=== PATIENT | female | born 1980 | race Caucasian/White ===

== ENCOUNTER 2023-09-26 09:06 | Outpatient (CLI) | payer BC, SELFPAY ==
--- NOTE | 2023-09-26 09:15 | US_ITS ---
[facility] Facility:?[facility] Patient ID:?[id number] Site Patient ID:?[id number]. Site :?[id number] Study:?US-Pelvis TRANSABDOMINAL AND TRANSVAGINAL-09/26/2023 9:54:06 AM Ordering Physician:ENEDINA LIMON Final Report: INDICATION: Abnormal uterine and vaginal bleeding. COMPARISON: None available. FINDINGS: Transvaginal and transabdominal ultrasound examination of the female pelvis was performed. Initial examination is performed with transabdominal technique and transvaginal technique is used for better visualization of the pelvic structures. The uterus is anteverted with no evidence of mass. It measures 7.4 x 3.5 x 4.6 cm. The endometrial lining is thin and not measurable, best seen in the superior fundus where there is mild amount of nonspecific fluid. There is solid-appearing heterogeneously hyperechoic material without increased color Doppler flow in the inferior fundal uterine cavity, nonspecific. This measures 7 millimeters in diameter and 2.0 centimeters in length. This could be a blood clot. The ovaries are normal in appearance and size, the right measuring 2.9 x 2.0 x 2.1 cm and the left measuring 3.4 x 1.4 x 2.7 cm. There is normal color and pulse doppler flow in both ovaries. There is no sign of free fluid in the pelvis. IMPRESSION: 1. Lower fundal uterine cavity contains heterogeneously hyperechoic material measuring 7 millimeters in thickness, nonspecific, but possibly blood clot. 2. Small amounts of fluid in the nondistended superior uterine cavity showing a very thin endometrial lining. 3. No other abnormality seen in the uterus. 4. Ovaries are normal in appearance bilaterally. Dictated by Michael Yoder MD @ 09/26/2023 8:31:42 PM Signed by:?Michael Yoder MD @09/26/2023 8:31:42 PM (Electronic Signature)
== END 2023-09-26 09:07 | disposition home or self-care (01) ==
LOC: US 09:07
PROVIDERS: PCP Physician Assistant; Visit Provider Obstetrics & Gynecology
DX: N93.9 Abnormal uterine and vaginal bleeding, unspecified (principal); R93.89 Abnormal findings on diagnostic imaging of other specified body structures
CPT/HCPCS: 76830; 76856

== ENCOUNTER 2023-11-26 06:11 | Day surgery (SDC) | payer BC, SELFPAY ==
[2023-11-26 06:49] VITALS: BMI 22.1
[2023-11-26 06:51] VITALS: BP 121/90; PULSE 70; RESP 16; TEMP 36.8; O2SAT 100
[2023-11-26] MEDS: SODIUM CHLORIDE 0.9 % (FLUSH) 10 ML SYRINGE IVF (06:52)
[2023-11-26] MEDS: LACTATED RINGERS 1000 ML 1,000 ML 100 ML IV (06:52)
[2023-11-26 06:53] LABS: Hemoglobin* 8.1 gm/dL (12.0-16.0)
[2023-11-26 06:57] LABS: Ur HCG Qualitative* Negative (Negative)
--- NOTE | 2023-11-26 07:00 | W.PM.H&PU ---
History & Physical Update History & Physical Update H&P Updates: Reports no interval changes to health since we last spoke beside diagnosis of iron deficiency anemia likely 2/2 to menorrhagia. LMP: 11/14/23 Hgb today: 8.1 gm/dL, will add iron panel Plan: will proceed with treatment of menorrhagia with endometrial ablation.
[2023-11-26 07:34] LABS: Basophils Percent Auto 0.7 % (0.0-3.0); Eosinophils Percent Auto 3.2 % (0.0-7.0); Hematocrit 29.1 % (33.0-51.0); Hemoglobin* 8.2 gm/dL (12.0-16.0); Lymphocytes Percent Auto 34.9 % (20-44); Mean Corpuscular HGB Conc 28 gm/dL (32-36); Mean Corpuscular Hemoglobin 18 pg (26-34); Mean Corpuscular Volume 65 fL (80-100); Monocytes Percent Auto 8.5 % (0.0-11.0); Neutrophils Percent Auto 52.7 % (42.0-72.0); Platelet Count* 397 K/uL (140-440); RDW Coefficient of Variation % 18.5 % (11.5-15.5); Red Blood Count 4.47 m/uL (4.00-5.20); White Blood Count* 4.01 K/uL (4.50-11.00)
[2023-11-26] MEDS: SILVER NITRATE APPLICATOR 1 EACH STICK..EA. 3 EACH TOPICAL (07:51)
--- NOTE | 2023-11-26 07:51 | SUR.OPER ---
PATIENT QUESTIONS ANSWERED SATISFACTORILY PREOPERATIVELY. PATIENT BROUGHT TO OR #4 PER CART .Patient positioned supine on OR #4 bed for the intubation. Pt. then moved into the lithotomy position for the procedure. Final approval of positioning by surgeon.
[2023-11-26 07:54] LABS: Iron* 28 ug/dL (37-170)
[2023-11-26 07:57] LABS: Slide Review Reflex Yes
--- NOTE | 2023-11-26 07:59 | W.ANESCHARGE ---
Anesthesia Charges Start Date/Time Anesthesia Start Date: 11/26/23 Anesthesia Start Time: 07:15 Stop Date/Time Anesthesia Stop Date: 11/26/23 Anesthesia Stop Time: 08:08
[2023-11-26 08:03] LABS: Percent Iron Saturation 6 % (20-50); Slide Review Acceptable Review (Acceptable); Total Iron Binding Capacity 496 ug/dL (265-497)
[2023-11-26 08:05] VITALS: BP 113/81; PULSE 75; RESP 16; TEMP 36.6; O2SAT 95
--- NOTE | 2023-11-26 08:14 | PM.GYNPRHA ---
Procedure Pre-op/Post-op diagnoses: Pre-Op/Post-Op Diagnoses Operation Date: 11/26/23 07:15 <No data on this case meets the specified criteria> Procedure: Procedures Operation Date: 11/26/23 07:15 Actual Procedure Side Surgeon p Hysteroscopy, Dilation, Endometrial Ablation Erika Keith MD Anesthesia Type: Local and MAC Specimen: none Complications: none Narrative: Preoperative diagnosis: Leigh is a 43 yo with heavy menstrual bleeding causes iron deficiency anemia. Postoperative diagnosis: Same. Procedure: Hysteroscopy, dilation, and endometrial ablation. Anesthesia: Mac and paracervical block. Surgeon: Erika Keith MD Assist: None Estimated blood loss: <5 mL UOP: 50 cc Specimen: None Complications: None Findings: On exam under anesthesia: The cervix and vagina appear normal. The uterus was anteverted position, approximately 5 week size, mobile and without masses or nodularity palpable. Adnexa were without mass or fullness palpable bilaterally. On hysteroscopy: Normal uterine cavity without masses or defect. Normal bilateral tubal ostia. No other abnormalities noted. The uterus sounded to 8 cm. Cervical length 3 cm. Cavity length: 5 cm. Procedure: Leigh was taken to the operating room where conscious sedation was found to be adequate. She was placed in a dorsal lithotomy position and an exam under anesthesia was performed with the findings stated above. She was then prepped and draped in a normal sterile manner. An a bivalve is sterile speculum was placed in the vaginal canal. A paracervical block was placed using 1% Lidocaine with epi: 5 mL were injected at the 4 and 8 o'clock positions on the cervix. A long tenaculum clamp was placed on the anterior lip of the cervix. The cervix was then dilated to Hegar 6. Uterus sounded to 8 cm. The cervix measured 3 cm. There for the cavity length was 5 cm. The Truclear hysteroscope was advanced into the uterus. A diagnostic hysteroscopy performed with normal saline as the insufflation medium. Findings are stated above. Uterine curetting was not performed as the entirety of the uterine cavity appeared normal and previous endometrial biopsy was benign. The hysteroscope was removed. The cervix was then dilated to Hegar 8. The Maureen device was advanced into the uterus. The cavity check was completed and the ablation took place over 2 min. The Maureen was removed, the hysteroscope readvanced to document ablation of the entire cavity. The hysteroscope was then removed. The tenaculum was clamp removed from the anterior lip of the cervix. Silver nitrate was used to obtain hemostasis at the tenaculum site. The patient tolerated this procedure well. Sponge, lap and instrument counts were correct x2 at the end of the procedure and the patient was taken to the recovery area in stable condition. Surgical debrief performed and pathology reviewed: no surgical specimen CBC and iron panel consistent with iron deficiency anemia. Discussed with patient plan for IV iron infusion and TXA on her next menstrual cycle.
[2023-11-26 08:15] VITALS: BP 124/94; PULSE 76; RESP 16; O2SAT 100
--- NOTE | 2023-11-26 08:15 | W.ANESCHARGE ---
Anesthesia Charges Start Date/Time Anesthesia Start Date: 11/26/23 Anesthesia Start Time: 07:15 Stop Date/Time Anesthesia Stop Date: 11/26/23 Anesthesia Stop Time: 08:08
[2023-11-26 08:40] VITALS: BP 114/80; PULSE 71; RESP 16; O2SAT 100
[2023-11-26 08:45] VITALS: BP 114/80; PULSE 74; RESP 16; O2SAT 100
== END 2023-11-26 09:08 | disposition home or self-care (01) ==
LOC: OR 06:12
PROVIDERS: PCP Physician Assistant; Visit Provider Obstetrics & Gynecology
PROC: 0UF98ZZ Fragmentation in Uterus, Via Natural or Artificial Opening Endoscopic (ICD-10-PCS; CPT 58563; principal; 2023-11-26 07:15)
DX: N92.0 Excessive and frequent menstruation with regular cycle (principal); D50.0 Iron deficiency anemia secondary to blood loss (chronic)
CPT/HCPCS: 58563; 00952; 36415; 81025; 83540; 83550; 85018; 85025; 86850; 86900; 86901; A9270; J1100; J1885; J2250; J2405; J2704; J3010; J3490; J7120

== ENCOUNTER 2023-12-05 10:27 | Outpatient (RCR) | payer BC, SELFPAY ==
--- NOTE | 2023-12-03 10:18 | URNOTE ---
Per [employer], prior auth is not required for infed/iron dextran ([id number]). [id number]
[2023-12-05 10:36] VITALS: BP 120/75; PULSE 66; RESP 18; TEMP 36.6; O2SAT 100
[2023-12-05] MEDS: IRON DEXTRAN COMPLEX 25 MG in 0.9 % SODIUM CHLORIDE 100 ml 100 ML 402 MG IVPB (11:05)
[2023-12-05 11:25] VITALS: BP 111/75; PULSE 80; RESP 14; TEMP 36.9; O2SAT 100
[2023-12-05 11:57] VITALS: BP 118/77; PULSE 76; O2SAT 99
[2023-12-05] MEDS: IRON DEXTRAN COMPLEX 975 MG in 0.9 % SODIUM CHLORIDE 250 ml 250 ML 269.5 MG IVPB (12:13)
[2023-12-05 13:21] VITALS: BP 109/72; PULSE 76; RESP 16; TEMP 36.7; O2SAT 98
[2023-12-05] MEDS: 0.9 % SODIUM CHLORIDE 250 ml IV (13:21)
[2023-12-05 13:52] VITALS: BP 118/76; PULSE 71; RESP 16; O2SAT 99
== END 2024-06-02 23:59 | disposition home or self-care (01) ==
LOC: CCIC 10:27
PROVIDERS: PCP Physician Assistant; Visit Provider Clinical Nurse Specialist
DX: D50.9 Iron deficiency anemia, unspecified (principal)
CPT/HCPCS: 96365; 96376; J1750; J7050